=== PATIENT | female | born 1980 | race Caucasian/White ===

== ENCOUNTER → 2018-06-24 11:26 | Outpatient (CLI) | payer OTHER, SELFPAY | DX: Z23 Encounter for immunization (principal) | CPT/HCPCS: 90471; 90686 ==

== ENCOUNTER → 2018-12-21 11:30 | Outpatient (CLI) | payer OTHER, SELFPAY | PROVIDERS: Family Provider Family Medicine; PCP Family Medicine; Visit Provider Registered Nurse | DX: R50.9 Fever, unspecified (principal) | CPT/HCPCS: 87400 ==

== ENCOUNTER → 2019-07-06 14:26 | Outpatient (CLI) | payer OTHER, SELFPAY | PROVIDERS: PCP Family Medicine | DX: Z23 Encounter for immunization (principal) | CPT/HCPCS: 90471; 90686 ==

== ENCOUNTER → 2020-02-17 07:16 | Outpatient (CLI) | payer OTHER, SELFPAY ==
--- NOTE | 2020-02-17 07:17 | DI.US.S_ITS ---
PROCEDURE: US ABDOMEN COMPLETE INDICATIONS: RIGHT UPPER QUADRANT PAIN TECHNIQUE: Real-time scanning was performed of the abdominal and retroperitoneal organs, with image documentation. COMPARISON: None. FINDINGS: Liver: Liver is normal in size and homogeneous in echotexture. Gallbladder: Removed. Biliary ducts: Intrahepatic bile ducts are non-dilated. Extrahepatic bile duct caliber measures 4 mm. Normal is 6-7 mm or less in diameter, or 10 mm or less post-cholecystectomy. Pancreas: Visualized portions of the pancreas are sonographically normal. Spleen: Spleen is normal in size and homogeneous in echotexture. Kidneys: Kidneys are normal in size and echotexture. Right kidney measures 10.8 cm long; left kidney measures 10.9 cm long. No hydronephrosis or nephrolithiasis. No solid masses. Aorta: Visualized aorta is normal in caliber at less than 3 cm. Iliacs: Proximal common iliac arteries are normal in caliber at less than 2.5 cm. IVC: Intrahepatic inferior vena cava is patent. Miscellaneous: No free abdominal fluid. IMPRESSION: Status post cholecystectomy. No biliary dilatation. No imaging explanation is found for this patient's presenting symptoms. Dictated by: Patel Holloway M.D. on 02/17/2020 at 8:16 Approved by: Patel Holloway M.D. on 02/17/2020 at 8:17
[2020-02-17 10:21] LABS: Alanine Aminotransferase 39 IU/L (<35); Albumin 4.8 g/dL (3.5-5.0); Albumin Globulin Ratio 1.7 (1.0-2.8); Alkaline Phosphatase 52 U/L (38-126); Aspartate Aminotransferase 41 IU/L (14-36); Bilirubin Total 0.6 mg/dL (0.2-1.3); Bilirubin Unconjugated 0.6 mg/dL (0.0-1.1); Globulin 2.9 g/dL (1.7-4.1); HEMOLYSIS < 15 (0-50); Total Protein 7.7 g/dL (6.3-8.2)
== END ==
PROVIDERS: PCP Family Medicine; Referring Provider Family Medicine; Visit Provider Family Medicine
DX: R10.11 Right upper quadrant pain (principal); Z90.49 Acquired absence of other specified parts of digestive tract
CPT/HCPCS: 36415; 76700; 80076

== ENCOUNTER → 2020-07-13 14:06 | Outpatient (CLI) | payer OTHER, SELFPAY | PROVIDERS: PCP Family Medicine; Referring Provider Internal Medicine; Visit Provider Internal Medicine | DX: Z23 Encounter for immunization (principal) | CPT/HCPCS: 90471; 90686 ==

== ENCOUNTER → 2020-10-27 09:47 | Outpatient (CLI) | payer OTHER, SELFPAY ==
[2020-10-27] MEDS: COVID-19 VACC(MODERNA-1)/PF 100 MCG/0.5 ML VIAL IM (09:56)
== END ==
PROVIDERS: PCP Family Medicine; Visit Provider Internal Medicine
DX: Z23 Encounter for immunization (principal)
CPT/HCPCS: 0011A; 91301

== ENCOUNTER → 2020-11-24 13:02 | Outpatient (CLI) | payer OTHER, SELFPAY ==
[2020-11-24] MEDS: COVID-19 VACC #2, MRNA(MOD) 100 MCG/0.5 ML VIAL IM (13:06)
== END ==
PROVIDERS: PCP Family Medicine; Visit Provider Internal Medicine
DX: Z23 Encounter for immunization (principal)
CPT/HCPCS: 0012A; 91301

== ENCOUNTER → 2021-06-13 13:37 | Outpatient (CLI) | payer OTHER, SELFPAY ==
[2021-06-13 14:07] LABS: COVID19 -Nasal RAPID Negative (Negative)
== END ==
PROVIDERS: PCP Family Medicine; Visit Provider Nurse Practitioner
DX: R09.81 Nasal congestion (principal); R11.0 Nausea; Z20.822 Contact with and (suspected) exposure to COVID-19
CPT/HCPCS: 87635

== ENCOUNTER → 2021-06-15 15:20 | Outpatient (CLI) | payer OTHER, SELFPAY ==
[2021-06-15 15:47] LABS: COVID19 -Nasal RAPID Negative (Negative)
== END ==
PROVIDERS: PCP Family Medicine; Visit Provider Nurse Practitioner
DX: Z20.822 Contact with and (suspected) exposure to COVID-19 (principal); R09.81 Nasal congestion
CPT/HCPCS: 87635

== ENCOUNTER → 2021-07-20 | Outpatient (CLI) | payer OTHER, SELFPAY | PROVIDERS: PCP Family Medicine; Referring Provider Internal Medicine; Visit Provider Internal Medicine | DX: Z23 Encounter for immunization (principal) | CPT/HCPCS: 90471; 90686 ==

== ENCOUNTER → 2021-08-06 11:16 | Outpatient (CLI) | payer OTHER, SELFPAY ==
[2021-08-06 13:34] LABS: COVID19 -Nasal RAPID Negative (Negative)
== END ==
PROVIDERS: PCP Family Medicine; Referring Provider Nurse Practitioner Family; Visit Provider Nurse Practitioner Family
DX: Z20.822 Contact with and (suspected) exposure to COVID-19 (principal); J02.9 Acute pharyngitis, unspecified; R09.81 Nasal congestion; R19.7 Diarrhea, unspecified
CPT/HCPCS: 87635

== ENCOUNTER → 2021-08-24 13:08 | Outpatient (CLI) | payer OTHER, SELFPAY ==
[2021-08-24] MEDS: COVID-19 VACC #3, MRNA(MOD) 50 MCG/0.25 ML VIAL IM (13:12)
== END ==
PROVIDERS: PCP Family Medicine; Visit Provider Internal Medicine
DX: Z23 Encounter for immunization (principal)
CPT/HCPCS: 0013A; 91301

== ENCOUNTER → 2021-10-01 09:52 | Outpatient (CLI) | payer OTHER, SELFPAY ==
[2021-10-01 13:57] LABS: Free T4, Direct Thyroxine 1.27 ng/dL (0.78-2.19)
[2021-10-01 14:11] LABS: Thyroid Stimulating Hormone 0.824 uIU/mL (0.47-4.68)
[2021-10-01 15:42] LABS: Vitamin D 25 Hydroxy (D3) 34.4 ng/mL (30.0-100.0)
[2021-10-01 15:43] LABS: Follicle Stimulating Hormone 8.78 mIU/mL; Luteinizing Hormone 27.9 mIU/mL
[2021-10-03 14:49] LABS: ANA Screen, IFA Negative (.)
== END ==
PROVIDERS: PCP Family Medicine; Referring Provider Obstetrics & Gynecology; Visit Provider Obstetrics & Gynecology
DX: N97.0 Female infertility associated with anovulation (principal)
CPT/HCPCS: 36415; 81291; 82306; 83001; 83002; 84439; 84443; 86038

== ENCOUNTER → 2022-07-12 12:07 | Outpatient (CLI) | payer OTHER, SELFPAY | PROVIDERS: PCP Family Medicine; Referring Provider Internal Medicine; Visit Provider Internal Medicine | DX: Z23 Encounter for immunization (principal) | CPT/HCPCS: 90471; 90686 ==

== ENCOUNTER → 2023-08-14 10:46 | Outpatient (CLI) | payer OTHER, SELFPAY | PROVIDERS: PCP Family Medicine; Referring Provider Family Medicine; Visit Provider Family Medicine | DX: Z23 Encounter for immunization (principal) | CPT/HCPCS: 90471; 90686 ==

== ENCOUNTER → 2024-04-21 09:47 | Outpatient (CLI) | payer OTHER, SELFPAY | PROVIDERS: PCP Family Medicine; Visit Provider Physician Assistant | DX: J02.9 Acute pharyngitis, unspecified (principal) | CPT/HCPCS: 87070; 87077; 87147 ==

== ENCOUNTER → 2024-07-23 20:26 | Outpatient (CLI) | payer OTHER, SELFPAY | PROVIDERS: PCP Family Medicine; Referring Provider Internal Medicine; Visit Provider Internal Medicine | DX: Z23 Encounter for immunization (principal) | CPT/HCPCS: 90471; 90656 ==

== ENCOUNTER → 2024-10-15 11:49 | Outpatient (CLI) | payer OTHER, SELFPAY ==
[2024-10-15 12:43] LABS: COVID-19 CEPHEID 4-PLEX PCR Negative (Negative); Influenza A - CEPHEID Flu A NEGATIVE (NEGATIVE); Influenza B - CEPHEID Flu B NEGATIVE (NEGATIVE); Respiratory Syncytial Virus Negative (Negative)
== END ==
PROVIDERS: PCP Family Medicine; Visit Provider Physician Assistant Medical
DX: R05.1 Acute cough (principal)
CPT/HCPCS: 0241U

== ENCOUNTER → 2025-01-11 11:54 | Outpatient (CLI) | payer OTHER, SELFPAY ==
[2025-01-11 13:27] LABS: Add Manual Diff / Slide Review NO; Basophils Absolute Auto 0 /uL (0-100); Basophils Percent Auto 0.6 % (0-2); Eosinophils Absolute Auto 100 /uL (0-450); Eosinophils Percent Auto 1.6 % (2-4); Hematocrit 38.5 % (36-46); Hemoglobin 13.1 g/dL (12.0-16.0); Lymphocytes Absolute Auto 1400 /uL (1100-4500); Lymphocytes Percent Auto 24.8 % (25-40); Mean Corpuscular Hemoglobin 29.9 PG (26-34); Mean Corpuscular Volume 87.8 fL (80-100); Monocytes Absolute Auto 300 /uL (0-900); Monocytes Percent Auto 5.3 % (3-14); Neutrophils Absolute Auto 3800 /uL (1500-7000); Neutrophils Percent Auto 67.7 % (50-75); Platelet Count 248 X10^3/uL (150-400); Red Blood Cell Count 4.38 X10^6/uL (4.0-5.2); Red Cell Distribution Width 12.8 % (11.6-14.8); White Blood Cell Count 5.6 X10^3/uL (4.5-11.0)
[2025-01-11 14:01] LABS: Alanine Aminotransferase 29 IU/L (<35); Albumin 4.2 g/dL (3.5-5.0); Albumin Globulin Ratio 1.8 (1.0-2.8); Alkaline Phosphatase 68 U/L (38-126); Aspartate Aminotransferase 31 IU/L (14-36); BUN Creatinine Ratio 14.6 (6-22); Bilirubin Total 0.7 mg/dL (0.2-1.3); Blood Urea Nitrogen 12 mg/dL (7-17); Calcium 9.3 mg/dL (8.4-10.2); Carbon Dioxide 25 mmol/L (22-32); Chloride 105 mmol/L (98-107); Cholesterol 187 mg/dL (140-199); Estimated Glomerular Filt Rate > 60 mL/min (>60); Globulin 2.3 g/dL (1.7-4.1); Glucose 86 mg/dL (70-100); HDL Cholesterol 48 mg/dL (40-60); HEMOLYSIS < 15 (0-50); LDL Cholesterol Calculated 106 mg/dL (<100); Sodium 138 mmol/L (137-145); Total Protein 6.5 g/dL (6.3-8.2); Triglycerides 163 mg/dL (35-150)
[2025-01-11 14:04] LABS: Erythrocyte Sedimentation Rate 7 MM/HR (0-20)
[2025-01-11 14:22] LABS: Follicle Stimulating Hormone 1.99 mIU/mL; Luteinizing Hormone 2.14 mIU/mL
[2025-01-11 14:28] LABS: TSH w/ Reflex to FT4 0.79 uIU/mL (0.47-4.68)
== END ==
PROVIDERS: PCP Family Medicine; Referring Provider Family Medicine; Visit Provider Family Medicine
DX: H90.5 Unspecified sensorineural hearing loss (principal); E28.2 Polycystic ovarian syndrome; M25.50 Pain in unspecified joint
CPT/HCPCS: 36415; 80053; 80061; 83001; 83002; 84443; 85025; 85651

== ENCOUNTER 2025-06-09 06:46 | Day surgery (SDC) | payer OTHER, SELFPAY ==
[2025-06-08 08:24] VITALS: BMI 29.4
--- NOTE | 2025-06-09 | PATH_ITS ---
[facility] Accession Number: [id number] No. of containers..01 Tissue . 01 Material submitted: . endometrium - ENDOMETRIAL CURETTINGS . 01 Diagnosis: ENDOMETRIAL CURETTINGS: Secretory endometrium with patchy regions of stromal breakdown; negative for endometrioid intraepithelial neoplasia or malignancy. Some endometrial fragments demonstrate prominent vessels, suggestive of polyp, if clinical and imaging studies are concordant. [facility] 06/15/2025 1930 Local . 01 Electronically signed: . Adamaris Cedillo MD, Pathologist NPI- [id number] . 01 Gross description: . Received in formalin labeled with two patient identifiers and endometrial curettings, and consists of a 1.5 x 1.0 x 0.3 cm aggregate of stephen-brown, friable, morcellated, soft tissues which are filtered and entirely submitted in cassette A1. ([id number]) /JOSELITO 06/14/2025 0838 Local . 01 Pathologist provided ICD-10: N92.0, N85.00 . 01 CPT . 736783 Specimen Comment: A courtesy copy of this report has been sent to [phone] Performed at: [address] [id number] MD Landon Juarez MD Phone: [phone]
[2025-06-09 07:17] VITALS: BMI 29.2
[2025-06-09 07:22] VITALS: BP 111/71; PULSE 89; RESP 17; TEMP 36.8; O2SAT 96
[2025-06-09] MEDS: LACTATED RINGERS 1,000 ML 21 ML IV (07:26)
--- NOTE | 2025-06-09 07:37 | PM.GYNHP.1 ---
History of Present Illness History of Present Illness Reason for admission: vaginal bleeding Narrative: Gema Valdez is a 44 year old female with a thickened endometrial lining and menorrhagia She presents for a D&C hysteroscopy and Mirena IUD insertion [facility] Surgical History (Updated 02/10/18 @ 05:53 by Conversion Provider) Status post colonoscopy Status post dilation and curettage History of third molar tooth extraction Family History (Updated 10/22/15 @ 00:00 by Conversion Provider) Brother Age: 39 Gallstones History of cholecystectomy Grandfather Kidney disease Mother Non Hodgkin's lymphoma Myasthenia gravis Rene's esophagus Gallstones History of cholecystectomy Grandmother Age: 94 Bone cancer Sister Age: 45 MTHFR mutation Gallstones History of cholecystectomy Thrombocytopenia Miscarriage Social History household members: spouse Smoking Status: Never smoker alcohol intake: never substance use type: does not use Meds Home Medications and Allergies Home Medications ?Medication ?Instructions ?Recorded ?Confirmed ?Type multivitamin (Multiple Vitamins 1 tab PO QDAY ##0 07/17/17 06/07/25 History tablet) sertraline 100 mg tablet 100 mg PO DAILY #90 tabs 05/06/25 06/09/25 Rx ondansetron 4 mg disintegrating 4 mg PO Q6H #20 tabs 06/03/25 06/07/25 Rx tablet semaglutide 1 mg/0.2 mL 1 mg (0.2 mL) SUBCUT .weekly #5 mL 06/07/25 06/07/25 Rx subcutaneous syringe Allergies Allergy/AdvReac Type Severity Reaction Status Date / Time hydrocodone (From LORTAB) Allergy Severe seizure Verified 06/09/25 07:15 like reaction Exam Vital Signs (past 8 hours): - 06/09/25 07:22 Temperature 98.3 F Pulse Rate 89 Respiratory Rate 17 Blood Pressure 111/71 Pulse Oximetry 96 Oxygen Delivery Method Room Air Oxygen Delivery Method Room Air Narrative Exam Narrative: HEENT: No thyromegaly, no anterior cervical or supraclavicular lymphadenopathy. Lungs:Clear to auscultation bilaterally, no wheezes. Cardiovascular: Regular rate and rhythm, no murmurs, rubs, or gallops. Abdomen: No scars. No hepatosplenomegaly. No masses palpable. External genitalia: Normal Vagina: Normal Cervix: Normal Bimanual exam: 10 Week size anteverted uterus. Mobile. Rectal: No masses. Assessment & Plan Assessment & Plan narrative: Assessment: 44-year-old 4 para 3 with a thickened endometrial lining and menorrhagia Plan: D&C hysteroscopy and Mirena IUD insertion The risks, benefits, and alternatives to the procedure were explained to the patient. The risks including bleeding, infection, or uterine perforation. She understands these risks and agrees to proceed. A full par Q was held and consent form was signed. Time-Based Coding :: [TOTAL MINUTES] spent with patient and on the chart (including review of chart, obtaining history, exam, reviewing outside data, placing orders, documenting exam and treatment plan, and counseling patient) on [DATE].
--- NOTE | 2025-06-09 07:39 | PM.PREOP ---
Pre-operative Note Interval Note History & Physical reviewed/Exam performed by Physician: Yes Changes to H&P: No H&P completed within 30 days and has changed as indicated here:: 06/09/25
--- NOTE | 2025-06-09 08:27 | SUR.OPER ---
Lithotomy on padded OR bed, head on pillow, arms secured on padded arm boards at <90 degrees abduction, strap across waist. Legs secured in padded yellow fins stirrups.
[2025-06-09 09:14] VITALS: BP 99/56; PULSE 66; RESP 16; TEMP 36.2; O2SAT 100
[2025-06-09 09:19] VITALS: BP 104/60; PULSE 76; RESP 16; TEMP 36.2; O2SAT 98
[2025-06-09 09:22] VITALS: BP 105/63; PULSE 82; RESP 16; O2SAT 100
--- NOTE | 2025-06-09 09:28 | PM.GYNOP.1 ---
Operative Date/Time/Diagnoses Date of procedure: 06/09/25 Time of procedure: 09:28 Pre-op diagnosis: Menorrhagia Thickened endometrial lining Post-op diagnosis: same Procedure & Clinicians Procedure: Procedures Operation Date: 06/09/25 08:15 Actual Procedure Side Surgeon p Hysteroscopy D&C, Mirena IUD, CERVICAL STITCH Not Applicable Judi Roca MD Indications: 44-year-old 4 para 3 with menorrhagia and a thickened endometrial lining Surgeon: Judi Roca Anesthesia Type: General (LMA) Operative Notes Findings: 8 week size anteverted uterus Both fallopian tube ostia observed Bleeding from the anterior cervix once the single-tooth tenaculum was removed Closure Type: not applicable Specimen(s): endometrial curettings Applied: none Estimated blood loss (mL): 5 Blood products transfused: none Procedure in detail: Informed consent was obtained. The patient was taken to the operating room where she was placed in the dorsal supine position. After adequate LMA general anesthesia was achieved, she was placed in the dorsal lithotomy position, and prepped and draped in the usual sterile fashion. A time-out was performed. A bivalve speculum was placed into the vagina and the anterior lip of the cervix was grasped with a single-tooth tenaculum. The cervical os was sequentially dilated until the MyoSure hysteroscope could pass easily into the endometrial cavity. Initial inspection revealed both fallopian tube ostia. The hysteroscope was removed. Using a # 7 suction curette, the endometrium was thinned out. Mirena IUD was placed at the fundus of the uterus without any issues. The strings were cut to 2 cm. Upon removing the single-tooth tenaculum from the anterior lip of the cervix, there was moderate amount of bleeding. A ring forcep was placed for 5 minutes. Upon removal there was still some bleeding. A [id number] suture with 2-0 chromic was placed for hemostasis. The speculum was removed from the vagina. Sponge, lap, and instrument counts were correct x2. The patient tolerated the procedure well, and was taken to PACU in stable condition. Post-operative Condition: stable Disposition: PACU Plan for aftercare: Home after recovery
[2025-06-09 09:29] VITALS: BP 116/65; PULSE 81; RESP 16; TEMP 36.2; O2SAT 98
[2025-06-09 09:35] VITALS: BP 115/75; PULSE 78; RESP 16; TEMP 36.2; O2SAT 98
--- NOTE | 2025-06-09 10:11 | SUR.PHASEII ---
1000 5mg oxycodone given, unable to chart in emar r/t IT issue
== END 2025-06-09 10:14 | disposition home or self-care (01) ==
PROVIDERS: PCP Family Medicine; Referring Provider Obstetrics & Gynecology; Visit Provider Obstetrics & Gynecology
PROC: 0UDB8ZZ Extraction of Endometrium, Via Natural or Artificial Opening Endoscopic (ICD-10-PCS; CPT 58558; principal; 2025-06-09 08:15)
DX: N92.0 Excessive and frequent menstruation with regular cycle (principal); Z30.430 Encounter for insertion of intrauterine contraceptive device
CPT/HCPCS: 58558; 58300; C1713; J1100; J1885; J2405; J2704; J3010